=== PATIENT | male | born 1945 | race American Indian/Alaskan Native ===

== ENCOUNTER 2017-07-20 13:23 | Emergency (ER) | payer MEDICARE, OTHER ==
[2017-07-20 13:34] VITALS: BP 150/71
--- NOTE | 2017-07-20 14:12 | UC ---
Skin Complaint HPI - HPI Summary HPI Summary: Pt presents with rash to b/l lower legs for the past 3-4 weeks. He tells me that about 3-4 weeks ago he was cutting brush [place] property. The next day he noticed a red and itchy rash to his right lower leg. He monitored the area and has been applying OTC creams and various lotions with no relief. This week he has noticed that the left leg seems to have a spot of redness and dry scaly skin. This week he has been using alcohol wipes on his legs with no relief. Denies drainage, bleeding, fever, chills, DM, SOB, chest pain, abdominal pain, N /V/D/C. No pain. Does not seem to be spreading, just not improving. - History of Current Complaint Hx Obtained From: Patient Onset/Duration: Gradual Onset Skin Exposure Onset/Duration: Weeks Ago Onset Severity: Moderate Current Severity: Moderate <Ehsan Tyson - Last Filed: 07/20/17 15:26> <Adriana Bowen - Last Filed: 07/22/17 07:15> - History of Current Complaint Chief Complaint: [employer] Time Seen by Provider: 07/20/17 13:55 Stated Complaint: RASH - Allergy/Home Medications Allergies/Adverse Reactions: Allergies Allergy/AdvReac Type Severity Reaction Status Date / Time Atorvastatin [From Lipitor] AdvReac INFLAMED Verified 07/20/17 13:34 JOINTS AND ACHINESS Review of Systems Constitutional: Negative Skin: Rash - B/l lower legs Respiratory: Negative Cardiovascular: Negative Gastrointestinal: Negative Musculoskeletal: Negative Neurological: Negative All Other Systems Reviewed And Are Negative: Yes <Ehsan Tyson - Last Filed: 07/20/17 15:26> PMH/Surg Hx/FS Hx/Imm Hx - Additional Past Medical History Additional PMH: BPH Cardiovascular History: Cardiac Disease, Hypertension GI/ History: Gastroesophageal Reflux - Surgical History Surgical History: Yes Surgery Procedure, Year, and Place: CARDI[place] 2009, [facility] [place] TRIGGER THUMB, [facility] 1999. LEFT THUMB, 2011, [facility] [place]. kidney stones "blasted" - Family History Known Family History: Positive: Unknown - Social History Occupation: Retired Lives: With Family Alcohol Use: Rare Substance Use Type: None Smoking Status (MU): Former Smoker Amount Used/How Often: 1-3 PPD X 30 YEARS Have You Smoked in the Last Year: No When Did the Patient Quit Smoking/Using Tobacco: 1997 - Immunization History Most Recent Influenza Vaccination: 2014 Most Recent Tetanus Shot: unknown Most Recent Pneumonia Vaccination: 2014 <Ehsan Tyson - Last Filed: 07/20/17 15:26> Physical Exam Triage Information Reviewed: Yes Appearance: Well-Appearing, Well-Nourished Vital Signs: Initial Vital Signs Temp 97.6 F 07/20/17 13:29 Pulse 77 07/20/17 13:29 Resp 18 07/20/17 13:29 BP 150/71 07/20/17 13:29 Pulse Ox 98 07/20/17 13:29 Vital Signs Reviewed: Yes Neck: Positive: Supple, Nontender, No Lymphadenopathy Respiratory: Positive: Chest non-tender, Lungs clear, Normal breath sounds, No respiratory distress, No accessory muscle use Cardiovascular: Positive: Pulses Normal - B/L LEs, Brisk Capillary Refill - B/L LEs Neurological: Positive: Alert Psychological: Positive: Age Appropriate Behavior Skin: Positive: rashes - Right lower leg: Diffuse patchy erythema with dry and scaly skin extending from the ankle to just below the tibial tuberosity. No open sores, wounds, drainage, warmth, or bleeding. Left lower leg: One area of 1cm diameter erythema with scaly patch. No drainage, warmth, or bleeding., Other - No edema, vesicles, ulcers, or nodules. <Ehsan Tyson - Last Filed: 07/20/17 15:26> Vital Signs: Initial Vital Signs Temp 97.6 F 07/20/17 13:29 Pulse 77 07/20/17 13:29 Resp 18 07/20/17 13:29 BP 150/71 07/20/17 13:29 Pulse Ox 98 07/20/17 13:29 <Adriana Bowen - Last Filed: 07/22/17 07:15> Course/Dx - Course Course Of Treatment: Suspect contact dermatitis. Rx for hydrocortisone cream BID and cover potential infectious process with Keflex for 7 days. - Differential Diagnoses - Skin Complaint Differential Diagnoses: Contact Dermatitis, Drug Rash, Eczema, Poison [place], Poison [place] - Diagnoses Provider Diagnoses: Contact dermatitis right lower leg <Ehsan Tyson - Last Filed: 07/20/17 15:26> Discharge <Ehsan Tyson - Last Filed: 07/20/17 15:26> <Adriana Bowen - Last Filed: 07/22/17 07:15> - Discharge Plan Condition: Stable Disposition: HOME Prescriptions: Cephalexin CAP* [Keflex CAP*] 500 mg PO BID #14 cap Hydrocortisone 2.5% CREAM(NF) 1 applic TOPICAL BID PRN #1 tube PRN Reason: Rash Patient Education Materials: Contact Dermatitis (ED) Referrals: Dmitriy Yoo MD [Primary Care Provider] - Additional Instructions: If you develop a fever, shortness of breath, chest pain, new or worsening symptoms - please call your PCP or go to the ED. Your blood pressure was high at todays visit. Please see your primary provider within 4 weeks for recheck and re-evaluation. 1) Apply cream to the rash twice a day for 7-10 days and please stop using alcohol wipes and other lotions. 2) If your symptoms persist beyond 7-10 days, please call your PCP to schedule a follow up appointment. Attestation Statement User Type: Provider - I was available for consult. This patient was seen by the ELIZABETH. The patient was not presented to, seen by, or examined by me. -Manuela <Adriana Bowen - Last Filed: 07/22/17 07:15>
== END 2017-07-20 14:25 | disposition home or self-care (01) ==
LOC: UCEAST 13:23
DX: L25.9 Unspecified contact dermatitis, unspecified cause (principal); N40.0 Benign prostatic hyperplasia without lower urinary tract symptoms; I10 Essential (primary) hypertension; I51.9 Heart disease, unspecified; K21.9 Gastro-esophageal reflux disease without esophagitis; Z95.5 Presence of coronary angioplasty implant and graft; Z87.891 Personal history of nicotine dependence
CPT/HCPCS: 99212; G0463